=== PATIENT | female | born 1965 | race Caucasian/White ===

== ENCOUNTER 2017-07-22 00:01 | Inpatient (IN) | payer BC, OTHER ==
[~2017-07-22] VITALS: Ht 149.9 cm; Wt 54.9 kg
--- NOTE | 2017-07-23 00:30 | NUR ---
INTAKE ASSESSMENT Received patient in intake. Pt is A/OX4, stable,speech is clear and coherent,ambulates with a steady gait.Patient denies any allergies to food or medications; follows Paleo diet at home. Vital signs b/p 116/74, HR-96, RR-16, SPO2- 98%, TEMP-97.7, Pain 0/10. Patient denies any history of seizure. Explained unit protocols and patient verbalized understanding.Patient is in stable condition for admission.
[2017-07-23] MEDS ORDERED: DICYCLOMINE HCL 20 MG TABLET PO PRN (00:45)
[2017-07-23] MEDS ORDERED: LORAZEPAM 2 MG/1 ML VIAL IM PRN (00:45)
[2017-07-23] MEDS ORDERED: MAG HYDROX/AL HYDROX/SIMETH 30 ML LIQUID UDC PO PRN (00:45)
[2017-07-23] MEDS ORDERED: THIAMINE HCL 200 MG/2 ML VIAL IM ONE (00:45)
[2017-07-23] MEDS ORDERED: LOPERAMIDE HCL 2 MG CAPSULE PO PRN ×2 (00:45)
[2017-07-23] MEDS ORDERED: LORAZEPAM 1 MG TABLET PO PRN ×2 (00:45)
[2017-07-23] MEDS ORDERED: CLONIDINE HCL 0.1 MG TABLET PO PRN (00:45)
[2017-07-23] MEDS ORDERED: ONDANSETRON ODT 4 MG TAB.RAPDIS SL PRN (00:45)
[2017-07-23] MEDS ORDERED: diphenhydrAMINE 50 MG CAPSULE PO PRN (00:45)
[2017-07-23] MEDS ORDERED: ONDANSETRON 4 MG/2 ML VIAL IM PRN (00:45)
[2017-07-23] MEDS ORDERED: IBUPROFEN 400 MG TABLET PO PRN (00:45)
[2017-07-23] MEDS ORDERED: ACETAMINOPHEN 325 MG TABLET PO PRN (00:45)
[2017-07-23] MEDS ORDERED: HYDROXYZINE PAMOATE 25 MG CAPSULE PO PRN (00:45)
[2017-07-23] MEDS ORDERED: MIRALAX 17 GM POWD.PACK PO PRN (00:45)
[2017-07-23] MEDS ORDERED: MAGNESIUM HYDROXIDE 30 ML LIQUID UDC PO PRN (00:45)
[2017-07-23 01:08] LABS: BASOPHILS % (AUTO) 0.4 % (0.0-2.0); EOSINOPHILS # (AUTO) 0.2 K/uL (0.0-0.7); EOSINOPHILS % (AUTO) 1.6 % (0.0-7.0); HEMATOCRIT 42.3 % (31.2-41.9); HEMOGLOBIN 14.4 g/dL (10.9-14.3); LYMPHOCYTES % (AUTO) 27.2 % (20.5-51.5); MEAN CORPUSCULAR HEMOGLOBIN 32.6 uug (24.7-32.8); MEAN CORPUSCULAR HGB CONC 34 g/dL (32.3-35.6); MEAN CORPUSCULAR VOLUME 95.9 fL (75.5-95.3); MONOCYTES # (AUTO) 0.9 K/uL (2.0-10.0); MONOCYTES % (AUTO) 8.5 % (0.0-11.0); NEUTROPHILS % (AUTO) 62.3 % (38.5-71.5); PLATELET COUNT (AUTO) 233 K/uL (179-408); RED BLOOD CELL COUNT(AUTO) 4.41 MIL/uL (3.63-4.92); WHITE BLOOD COUNT (AUTO) 11.1 K/uL (3.8-11.8)
[2017-07-23] MEDS ORDERED: OMEP20TA20 PO (01:12)
[2017-07-23 01:20] LABS: *URINE HCG, QUAL NEGATIVE (NEGATIVE)
--- NOTE | 2017-07-23 01:25 | NUR ---
ADMISSION NOTE HT - 4 FEET; 11 INCHES. WT - 121 POUNDS. V/S : B/P=116/74; T=97.7;P=96;R=16;O2 SAT= 98%, CIWA=5. Admitting 51 y/o female to [facility] for medically supervised withdrawals from ALCOHOL dependency.Pt stated she has been drinking alcohol on and off since the age of 20.She reports drinking 2-3 glasses of alcohol;2-3 times a week.Pt reported that last night (07/21/17) she drank a bottle of alcohol,approximately 500 mls and went to [facility] to detox safely.She was medically cleared and was referred by Jerrell guzman to [facility]. Pt is A/O X 3; she denies any allergies to food or medications.Placed on a regular diet,FULL CODE status and fall/seizure precautions.Pt denies any history of seizures,denies any medical or psychiatric problems.Pt occasionally takes Prilosec OTC for occasional heartburn due to tomatoes.Skin is intact,warm and dry to touch; breathing is even and non labored;lungs are clear to auscultation bilaterally;no c/o SOB or wheezing noted; abdomen is soft,non tender and palpable with bowel sounds present x 4.Pt c/o feeling shaky and anxious with some abdominal discomfort.No c/o N/V/D/C noted.Pt does not have a PCP.Pt admits having an Advanced Directive which is in possession with her sister Elena Smart in [place].Sister's phone number is .Pt oriented to room and unit,unit rules explained,all safety measures are in place per hospital policy,bed is locked in the lowest position with side rails up x 2;call light within reach.Dr Fong notified.Will continue to monitor for safe detox. ALCOHOL USE HX PT HAS BEEN DRINKING ALCOHOL SINCE SHE WAS 20 YEARS OLD.SHE REPORTS DRINKING 2-3 GLASSES 2-3 TIMES A WEEK. LAST DRINK WAS ON 07/22/17 AT 0600. DETOX HX PT STATED SHE WENT TO A DETOX CENTER FOR 3 DAYS, LAST .SHE DOES NOT REMEMBER TO NAME OF THE CENTER. HER LONGEST SOBER PERIOD WAS FOR 6 WEEKS, LAST SUMMER. Addendum: 07/23/17 at 0437 by DARLENE RUBALCAVA RN PT STATED SHE HAS HX OF SKIN CANCER (BASIL CELL CA),DIAGNOSED 10 YEARS AGO;SHE IS NOW IN REMISSION.PT STATES SHE USES SUNSCREEN LOTION NEEDED. Addendum: 07/23/17 at 0441 by DARLENE RUBALCAVA RN PT IS A NON SMOKER,REFUSED FLU AND PNA VACCINATIONS,URINE DRUG SCREEN IS NEGATIVE.
[2017-07-23 01:38] LABS: *AMPHETAMINE, URINE NEGATIVE (NEGATIVE); *BARBITURATE, URINE NEGATIVE (NEGATIVE); *CANNABINOID, URINE NEGATIVE (NEGATIVE); *COCCAINE, URINE NEGATIVE (NEGATIVE); *OPIATE, URINE NEGATIVE (NEGATIVE); *PHENCYCLIDINE SCREEN,URINE NEGATIVE (NEGATIVE)
--- NOTE | 2017-07-23 01:41 | NUR ---
PRN ATIVAN 1 MG PO GIVEN FOR CIWA - 5. WILL MONITOR FOR EFFECTIVENESS.
[2017-07-23 01:43] LABS: BILIRUBIN,TOTAL 0.8 mg/dL (0.2-1.0); MAGNESIUM 1.7 mg/dL (1.8-2.4); POTASSIUM 3.5 mmol/L (3.5-5.1); TOTAL PROTEIN, SERUM 7.1 g/dL (6.4-8.2)
[2017-07-23] MEDS ORDERED: THIAMINE HCL 200 MG/2 ML VIAL ONE (01:44)
[2017-07-23] MEDS ORDERED: LORAZEPAM 1 MG TABLET ONE (01:45)
[2017-07-23 01:54] LABS: THYROID STIMULATING HORMONE 2.892 mIU/mL (0.358-3.740)
--- NOTE | 2017-07-23 02:45 | NUR ---
PRN F/U PT IS FAST ASLEEP IN BED,NO S/S OF DISTRESS NOTED,UNABLE TO ASSESS FOR CIWA AT THIS TIME.
[2017-07-23 04:00] VITALS: BP 125/74
--- NOTE | 2017-07-23 06:53 | NUR ---
END OF SHIFT Admitted 51 y/o female to [facility] for medically supervised withdrawals from ALCOHOL dependency.Pt is A/O X 3; she denies any allergies to food or medications.Placed on a regular diet,FULL CODE status and fall/seizure precautions.Pt denies any history of seizures,denies any medical or psychiatric problems.Has hx of skin cancer,in remission now.PRN ativan 1 mg po given for CIWA-5 and was effective.Last CIWA=3.Pt slept 5 hrs.,fluid intake was 500 mls,voided x 1.All safety measures are in place per hospital policy,bed is locked in the lowest position with side rails up x 2;call light within reach.Will be monitored for safety.
--- NOTE | 2017-07-23 07:08 | NUR ---
Start of Shift Endorsement received from nightshift nurse. Pt is a 51 y/o female admitted for alcohol dependence. Pt has not been placed on a taper at this time until farther evaluated by the MD. Pt received PRN Ativan 1mg. Pt is tolerating the detox process AEB CIWA 3 at midnight. VS WNL. Full Code. PT is alert and oriented x4. Pt is in STABLE condition at this time. Remains compliant with medication and diet regimen. All needs have been met, All safety measures in place per hospital policy. Bed in lowest position, side rails up x2, call-light within reach. Will continue to monitor
[2017-07-23 08:00] VITALS: BP 135/86
[2017-07-23] MEDS: THIAMINE HCL 100 MG TABLET PO SCH (09:17)
[2017-07-23] MEDS: FOLIC ACID 1 MG TABLET PO SCH (09:17)
[2017-07-23] MEDS: MULTIVITAMINS,THERAPEUTIC TABLET PO SCH (09:17)
[2017-07-23] MEDS ORDERED: MAGNESIUM OXIDE 400 MG TABLET PO ONE (10:30)
[2017-07-23 12:00] VITALS: BP 137/85
[2017-07-23] MEDS: GABAPENTIN 300 MG CAPSULE PO SCH ×2 (15:17→20:24)
[2017-07-23 16:00] VITALS: BP 151/97
[2017-07-23] MEDS ORDERED: IBUP-1953 PO (17:50)
[2017-07-23] MEDS ORDERED: TRAZ-144 PO (17:50)
[2017-07-23] MEDS ORDERED: GABA-534 PO (17:50)
[2017-07-23] MEDS ORDERED: PRAZ1CAP2 PO (17:50)
--- NOTE | 2017-07-23 19:14 | NUR ---
End of Shift Endorsement given to nightshift nurse. Pt is a 51 y/o female admitted for alcohol dependence. Pt has not been placed on a taper. PT has been scheduled to be discharged on 07/24/17. Provided discharge education and completed all discharge documentation. Pt did not receive any PRN medications. Educated pt on diet and medication regimen. Pt is tolerating the detox process AEB CIWA 3 at 1600. VS WNL. Full Code. PT is alert and oriented x4. Pt is in STABLE condition at this time. Remains compliant with medication and diet regimen. All needs have been met, All safety measures in place per hospital policy. Bed in lowest position, side rails up x2, call-light within reach. Will continue to monitor
--- NOTE | 2017-07-23 19:30 | NUR ---
START OF SHIFT Pt is a 51 y/o female admitted on 07/22/17 for ETOH dependence. Pt was dependent on 2-3 glasses of wine 2-3 x weekly for the past year. Pt reports PMH of insomnia, chronic low back pain and occasional heartburn. Pt does not have an ordered taper, PRN Ativan available. Pt is scheduled to be D/C tomorrow. Upon assessment pt is laying in bed with eyes closed and presents with anxiety, intermittent sweats and intermittent headache. Respirations 16, even and unlabored. Denies N/V/D. Denies chest pain or SOB. Medications due. Safety measures in place. Call light within reach. Will continue to monitor.
[2017-07-23 20:00] VITALS: BP 145/94
--- NOTE | 2017-07-23 20:24 | NUR ---
PRN CLONIDINE ADMINISTRATION Pt presents with anxiety, mild agitation and intermittent sweats. BP 145/94 HR 107. Safety measures in place. Call light within reach. Will continue to monitor.
[2017-07-23] MEDS ORDERED: PRAZOSIN HCL 1 MG CAPSULE PO SCH (21:00)
[2017-07-23] MEDS ORDERED: TRAZODONE 50 MG TABLET PO PRN (21:00)
--- NOTE | 2017-07-23 21:24 | NUR ---
PRN CLONIDINE REASSESSMENT Pt presents with improvement in anxiety, agitation and sweats. Safety measures in place. Call light within reach. Will continue to monitor.
[2017-07-24] VITALS: BP 110/71
--- NOTE | 2017-07-24 | NUR ---
CIWA DEFERRED Pt laying in bed with eyes closed, CIWA deferred, to be assessed when pt is awake per orders. Respirations 18, even and unlabored. Safety measures in place. Call light within reach. Will continue to monitor.
[2017-07-24 04:00] VITALS: BP 90/50
--- NOTE | 2017-07-24 04:00 | NUR ---
CIWA DEFERRED Pt laying in bed with eyes closed, CIWA deferred, to be assessed when pt is awake per orders. Respirations 16, even and unlabored. Safety measures in place. Call light within reach. Will continue to monitor.
--- NOTE | 2017-07-24 07:16 | NUR ---
END OF SHIFT Pt is a 51 y/o female admitted on 07/22/17 for ETOH dependence. Pt was dependent on 2-3 glasses of wine 2-3 x weekly for the past year. Pt reports PMH of insomnia, chronic low back pain and occasional heartburn. Pt was not placed on an ordered taper. Pt is scheduled to be D/C today. Pt presented with anxiety, agitation, intermittent sweats, elevated BP and HR, and intermittent headache. Scheduled medications and PRN Clonidine administered, effective in S/S of withdrawal as verbalized by pt. Last CIWA 2 at 1999. Pt slept 7 hours. Intake 1500 ml, void x 5, stool x 1. Safety measures in place. Call light within reach. Pts needs have been met. Endorsed to day shift nurse.
--- NOTE | 2017-07-24 07:30 | NUR ---
START OF SHIFT Pt 51 y/o female admitted for etoh dependence. Pt received in room on bed awake watching television . Pt alert and oriented to name, place, and time. Perrla. Skin warm and dry to touch. Respirations even and unlabored. No hand tremors noted. It was reported that pt slept for 7 hours last night. Bed on lowest position with side rails x2 up for safety. Call light within reach. No distress noted at this time.
[2017-07-24 08:00] VITALS: BP 126/88
[2017-07-24] MEDS: GABAPENTIN 300 MG CAPSULE PO SCH (08:47)
[2017-07-24] MEDS: FOLIC ACID 1 MG TABLET PO SCH (08:47)
[2017-07-24] MEDS: MULTIVITAMINS,THERAPEUTIC TABLET PO SCH (08:47)
[2017-07-24] MEDS: THIAMINE HCL 100 MG TABLET PO SCH (08:47)
[2017-07-24] MEDS ORDERED: TUBERCULIN,PURIF.PROT.DERIV. 5 TU/0.1 ML TEST ID ONE (09:00)
--- NOTE | 2017-07-24 09:40 | NUR ---
DISCHARGE Pt 51 y/o female admitted for etoh dependence. Pt alert and oriented to name, place, and time. Perrla. Skin warm dry to touch. Respirations even and unlabored. No hand tremors noted. Pt discharged to [facility] and was picked up by friend. VS wnl. No belongings in cassette, home medications, or cabinet, and clarified by pt. Prescriptions, discharge papers, and belongings packed in pt bag. Pt denies any SI/HI. No distress noted.
[2017-07-24 12:07] LABS: HEPATITIS B SURFACE AG Negative (Negative)
== END 2017-07-24 09:40 | DRG 895 ==
LOC: SRC 00:01
PROVIDERS: ADMIT Internal Medicine; ATTEND Internal Medicine
PROC: HZ2ZZZZ Detoxification Services for Substance Abuse Treatment (ICD-10-PCS; principal; 2017-07-22)
PROC: HZ41ZZZ Group Counseling for Substance Abuse Treatment, Behavioral (ICD-10-PCS; 2017-07-23)
DX: F10.10 Alcohol abuse, uncomplicated (principal); F11.21 Opioid dependence, in remission; K70.10 Alcoholic hepatitis without ascites; E83.42 Hypomagnesemia; G89.29 Other chronic pain; M54.5 Low back pain; M54.30 Sciatica, unspecified side; F41.9 Anxiety disorder, unspecified; G47.00 Insomnia, unspecified
CPT/HCPCS: 36415; 70030-TC; 80307; 83690; 83735; 84443; 84703; 85025; 86592; 86705; 86803; 87340; 87806; A4663; G0480; J3411